=== PATIENT | female | born 1985 | race Caucasian/White ===

== ENCOUNTER 2017-06-21 18:21 | Observation (INO) ==
--- NOTE | 2017-06-21 19:15 | Emergency Department Note ---
Disposition Clinical Impression: Chest pain Qualifiers: Chest pain type: unspecified Qualified Code(s): R07.9 - Chest pain, unspecified Disposition: Admitted As Inpatient Condition: Fair Referrals: Sonam Justice CNP [Primary Care Provider] - Forms: ED Satisfaction Letter Time of Disposition: 21:03 Chest Pain HPI - General Chief Complaint: ED Chest Pain Stated Complaint: CP Time Seen by Provider: 06/21/17 18:24 Source: patient Limitations: no limitations Vital Signs Reviewed: Yes Nursing Notes Reviewed: Yes - History of Present Illness HPI Narrative: Presents with chest pain which is sharp and was present minimally for about 15 minutes this morning and then began while at rest at 3:00 this afternoon and the pain is sharp and constant with radiation to left shoulder and is worse with exertion and does have associated diaphoresis and dyspnea. No pleuritic aspect. Does not radiate straight through the back. No pain or swelling of the lower extremities. I did review the previous record and the patient does have multiple visits for chest pain including most recently 01/17/2016 with negative troponin was sent home for further outpatient management. 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 Social history: Smoker. Family history: Does have a father with congestive heart failure and atrial fibrillation but states does not have coronary disease. Severity scale (1-10): 6 - Related Data Home Medications Medication Instructions Recorded Confirmed Aspirin Enteric Coated [Aspirin EC] 81 mg PO DAILY 06/21/17 06/21/17 Metoprolol XL (24 HR) Succ [Toprol 25 mg PO DAILY 06/21/17 06/21/17 XL] Allergies Allergy/AdvReac Type Severity Reaction Status Date / Time No Known Allergies Allergy Verified 08/21/15 14:19 Review of Systems: Constitutional: No fever Vision: No blurred vision ENT: No rhinorrhea Respiratory: No cough Allergic: No allergies : No blood in urine GI: No blood in stool Hematologic: No bruising Dermatologic: No skin rash Musculoskeletal: No pain in the extremities Neuro: No numbness of the extremities Chest Pain PMH - Past Medical History Medical history: Reports: asthma Surgical history: Reports: , cholecystectomy Psychiatric history: Reports: anxiety, depression 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 , bilateral tubal ligation - Social History Smoking Status: Current every day smoker Alcohol use: Reports: none Drug use: Reports: none Physical Exam CONSTITUTIONAL: Well-appearing; well-nourished; A&O X 3, in no apparent distress HEAD: Normocephalic; atraumatic EYES: PERRL, no scleral icterus NOSE: The nose is normal in appearance without rhinorrhea NECK: No JVD or distended neck veins RESP: Normal chest excursion with respiration; breath sounds clear and equal bilaterally; no wheezes, rhonchi, or rales CARD: Regular rhythm, without murmurs, rub or gallop ABD: Non-distended; non-tender, soft, without rigidity, rebound or guarding,no pulsatile mass CHEST: Does have pain with palpation which does result in some facial wincing when the anterior chest wall is palpated. Normal appearance without erythema SKIN: Normal for age and race; warm and dry without diaphoresis ; no apparent lesions EXTREMITIES: Pulses are 2 plus and equal times 4 extremities, no peripheral edema or calf muscle pain - General Limitations: no limitations General appearance: alert Course Vital Signs Temperature 98.6 F 06/21/17 18:33 Pulse Rate 90 06/21/17 18:33 Respiratory Rate 22 06/21/17 18:33 Blood Pressure 143/91 06/21/17 18:33 O2 Sat by Pulse Oximetry 99 06/21/17 18:33 Temperature 98.6 F 06/21/17 18:33 Pulse Rate 79 06/21/17 20:39 Respiratory Rate 22 06/21/17 20:39 Blood Pressure 128/61 06/21/17 20:39 O2 Sat by Pulse Oximetry 100 06/21/17 20:39 Oxygen Delivery Oxygen Delivery Room Air Chest Pain - MDM Narrative Medical decision making narrative: The patient does have chest pain which is had multiple times in the past and she does have reproducible pain with palpation of the anterior chest wall and I did compare her EKG to previous EKG from January 2016 which does show some minimal anterior ST depression which is new compared to 2016. I did review her echocardiogram which does show a minimally decreased ejection fraction. She does have exertional pain as well as well as associated diaphoresis, dyspnea, radiation to left shoulder and EKG change and for that reason patient will be admitted for further evaluation 1917 I did review the patient's test results and the concern is that she does have new ischemic anterior ST changes with her history of cardiomyopathy I did speak with the hospitalist accepts the patient for admission. Initial troponin is negative. The patient will be admitted for further cardiac monitoring and cardiac troponin testing. 2021 - Medical Records Medical records reviewed: Yes I reviewed the patient's medical records. - Lab Data Lab results reviewed: Yes I reviewed the patient's lab results. Result diagrams: 06/21/17 18:38 06/21/17 18:38 Lab Results 06/21/17 06/21/17 Range/Units 18:38 18:38 WBC 12.8 H (4.3-11.1) K/mcL RBC 5.16 H (3.82-4.97) M/mcL Hgb 13.4 (11.5-15.4) g/dL Hct 41.7 (35.3-44.9) % MCV 80.8 L (83.0-100.0) fL MCH 26.0 L (28.0-33.3) pg MCHC 32.1 (31.6-35.5) g/dL RDW 15.0 H (11.5-14.5) % Plt Count 300 (140-400) K/mcL MPV 10.8 (9.4-12.4) fL Immature Gran % 0.4 (0-4) % Seg Neutrophils % 71.2 % Lymphocytes % 20.9 % Monocytes % 5.4 % Eosinophils % 1.9 % Basophils % 0.2 % Neutrophils # 9.1 H (1.6-8.9) K/mcL Lymphocytes # 2.7 (0.6-4.6) K/mcL Monocytes # 0.7 (0.0-1.3) K/mcL Eosinophils # 0.2 (0.0-0.6) K/mcL Basophils # 0.0 (0.0-0.2) K/mcL Sodium 136 (136-145) mEq/L Potassium 4.2 (3.5-5.1) mEq/L Chloride 109 H (98-107) mEq/L Carbon Dioxide 20 L (23-29) mEq/L BUN 12 (6-20) mg/dL Creatinine 0.60 (0.60-1.20) mg/dL Est GFR ( Amer) > 60 (> 60) Est GFR (Non-Af Amer) > 60 (> 60) BUN/Creatinine Ratio 20 (6-26) Glucose 86 (70-105) mg/dL Calculated Osmolality 281 (280-300) Calcium 9.3 (8.6-10.3) mg/dL Troponin I < 0.03 (< 0.04) ng/mL - Radiology Data Radiology results reviewed: Yes I reviewed the patient's radiology results. Heart Score - Score History: Moderately Suspicious EKG: Significant ST-Depression Age: Less than 45 Risk Factors: 1-2 risk factors Troponin: Less than normal limit HEART Score Total: 4
[2017-06-21] MEDS ORDERED: Aspirin 325 MG TABLET PO ONE (19:19)
[2017-06-21 20:04] LABS: Basophils % 0.2 %; Eosinophils # 0.2 K/mcL (0.0-0.6); Eosinophils % 1.9 %; Hematocrit 41.7 % (35.3-44.9); Hemoglobin 13.4 g/dL (11.5-15.4); Immature Granulocytes % 0.4 % (0-4); Lymphocytes # 2.7 K/mcL (0.6-4.6); Lymphocytes % 20.9 %; Mean Corpuscular HGB Conc 32.1 g/dL (31.6-35.5); Mean Corpuscular Volume 80.8 fL (83.0-100.0); Mean Platelet Volume 10.8 fL (9.4-12.4); Monocytes # 0.7 K/mcL (0.0-1.3); Monocytes % 5.4 %; Neutrophils # 9.1 K/mcL (1.6-8.9); Platelet Count 300 K/mcL (140-400); Red Blood Count 5.16 M/mcL (3.82-4.97); Segmented Neutrophils % 71.2 %
[2017-06-21 20:09] LABS: Troponin I < 0.03 ng/mL (< 0.04)
[2017-06-21 20:12] LABS: BUN/Creatinine Ratio 20 (6-26); Blood Urea Nitrogen 12 mg/dL (6-20); Calcium 9.3 mg/dL (8.6-10.3); Carbon Dioxide 20 mEq/L (23-29); Chloride 109 mEq/L (98-107); Glucose 86 mg/dL (70-105); Osmolality,Calculated 281 (280-300); Potassium 4.2 mEq/L (3.5-5.1); Sodium 136 mEq/L (136-145); eGFR For African Americans > 60 (> 60); eGFR For Non-African Americans > 60 (> 60)
--- NOTE | 2017-06-21 21:40 | Internal Med History&Physical ---
<Tone Ch Damian - Last Filed: 06/22/17 00:55> Date of Encounter: 06/22/17 Time of Encounter: 21:31 Assessment and Plan (1) Atypical chest pain Current visit: Yes Status: Acute Chest pain beginning at rest, with concerning symptoms of cardiac cause Received ASA in ED - add Nitro SL for chest pain ECG shows some minimal anterior ST depression which is new from prior evaluation in 2016 - Repeat ECG in AM Initial troponin negative - will continue to trend every 6 hours to evaluate for ACS Chest x-ray shows no acute process Follows with [facility] in [place] - previous EF 45-50% in May 2017 - Repeat Echo in AM due to change in symptoms and ECG - Lungs clear and no LE edema Consult Cardiology for further recommendations Continue home metoprolol and ASA (2) ST segment depression Current visit: Yes Status: Acute (3) History of cardiomyopathy Current visit: Yes Status: Acute (4) Tobacco use Current visit: Yes Status: Acute Internal Medicine - H&P: HPI Chief complaint: Chest Pain Admitted From: Emergency Dept History of present illness: Ms. Vance is a 31 year old female with past medical history asthma and cardiomyopathy, presented to the emergency department after having chest pain that began this afternoon around 3 PM. She states the pain is centrally located and constant with radiation to left shoulder/side, with intermittent periods when it becomes sharp. Symptoms began at rest after work, and continued on her drive home. Associated symptoms include diaphoresis, dyspnea, palpitations, and nausea. She states that her pain and dyspnea gets worse with walking. Admits to some mild lower extremity edema over the past couple months and orthopnea. She states while she was having the pain on her travel she felt like everything was going in slow motion. She denies syncope, fevers, cough, pleuritic pain, vomiting, heartburn, and abdominal pain. She states that she has had been having chest pain intermittently for the past year, but at this time she felt worse while having the pain. She follows with [facility] in [place] and they did an echocardiogram in May that showed an EF of 45-50% . She denies any personal prior cardiac history, but was previously taking lisinopril for hypertension, but it was stopped as her pressures normalized. She does admit to tobacco use. She does have a family history of cardiac disease with a father who has CHF and A. fib. Past Med Surg Social Fam HX - Past Medical History Medical history: asthma, cardiomyopathy Psychiatric history: anxiety, depression - Past Surgical History Surgical History: , cholecystectomy, other (Bilateral tubal ligation) - Social History Smoking Status: Current every day smoker Smokeless Tobacco Status: No Alcohol use: none Drug use: none - Family History Father Hx Family Cardiac Disorders: Yes (HTN, CHF, afib) Internal Medicine - H&P: Meds Aspirin Enteric Coated [Aspirin EC] 81 mg PO DAILY 06/21/17 [History] Metoprolol XL (24 HR) Succ [Toprol XL] 25 mg PO DAILY 06/21/17 [History] 3 Allergy/AdvReac Type Severity Reaction Status Date / Time No Known Allergies Allergy Verified 08/21/15 14:19 All Systems PM: A 10-system review of systems was performed and is negative for pertinent findings except as documented above in the HPI. - Constitutional Vitals: Temp Pulse Resp BP Pulse Ox 98.6 F 79 22 128/61 100 06/21/17 18:33 06/21/17 20:39 06/21/17 20:39 06/21/17 20:39 06/21/17 20:39 General appearance: Present: cooperative, A&O X 3, no acute distress, answers questions appropriately - Head Head exam: Present: atraumatic, normal inspection, normocephalic - Eye Eye exam: Present: EOMI, PERRL, sclera anicteric - ENT ENT exam: Present: mucous membranes moist, normal oropharynx - Neck Neck exam general surgery: Present: full ROM, normal inspection. Absent: lymphadenopathy - Respiratory Respiratory exam: Present: chest wall tenderness (anterior lower left ribs), CTAB. Absent: rales, respiratory distress, rhonchi, wheezes - Cardiovascular Cardiovascular exam: Present: RRR, +S1, +S2 - GI/Abdominal GI/Abdominal exam: Present: normal bowel sounds, soft. Absent: tenderness - Extremities Exam Extremities exam: Present: full ROM, normal capillary refill, normal inspection , warm, radial pulses palpable and symmetrical. Absent: calf tenderness, pedal edema, tenderness - Neurological Exam Neurological exam: Present: alert, oriented X3, no focal deficits - Skin Skin exam: Present: dry, intact, warm Internal Med - H&P Results - Labs CBC & Chem 7: 06/21/17 18:38 06/21/17 18:38 Labs: Short CBC 06/21/17 Range/Units 18:38 WBC 12.8 H (4.3-11.1) K/mcL Hgb 13.4 (11.5-15.4) g/dL Hct 41.7 (35.3-44.9) % Plt Count 300 (140-400) K/mcL Neutrophils # 9.1 H (1.6-8.9) K/mcL BMP 06/21/17 18:38 Sodium 136 Potassium 4.2 Chloride 109 H Carbon Dioxide 20 L BUN 12 Creatinine 0.60 Glucose 86 Calcium 9.3 Cardiac Enzymes 06/21/17 Range/Units 18:38 Troponin I < 0.03 (< 0.04) ng/mL - Impressions ITS Impressions Chest X-Ray 06/21/17 18:28 IMPRESSION: No acute process. D/ / Charles Fiore MD / Charles Fiore MD Interpreting Provider: Charles Fiore MD - VTE Reasons for not Prescribing Prophylaxis: Treatment not Indicated - Low risk for VTE <Ashlee Torrez - Last Filed: 06/22/17 05:21> Date of Encounter: 06/22/17 Internal Medicine - H&P: HPI History of present illness: Ms. Vance is a 31 year old female All Systems PM: A 10-system review of systems was performed and is negative for pertinent findings except as documented above in the HPI. - Constitutional Vitals: Temp Pulse Resp BP Pulse Ox 98.1 F 69 18 102/65 99 06/22/17 02:56 06/22/17 02:56 06/22/17 02:56 06/22/17 02:56 06/22/17 02:56 Internal Med - H&P Results - Labs CBC & Chem 7: 06/22/17 00:29 06/22/17 00:29 Labs: Short CBC 06/22/17 Range/Units 00:29 WBC 11.1 (4.3-11.1) K/mcL Hgb 11.9 D (11.5-15.4) g/dL Hct 37.6 (35.3-44.9) % Plt Count 270 (140-400) K/mcL Neutrophils # 7.1 (1.6-8.9) K/mcL BMP 06/22/17 00:29 Sodium 138 Potassium 3.5 Chloride 109 H Carbon Dioxide 22 L BUN 12 Creatinine 0.70 Glucose 113 H Calcium 8.9 Cardiac Enzymes 06/22/17 Range/Units 00:29 Troponin I < 0.03 (< 0.04) ng/mL Liver Function 06/22/17 Range/Units 00:29 Total Bilirubin 0.4 (0.3-1.0) mg/dL AST 11 L (13-39) Units/L ALT 10 (7-52) Units/L Alkaline Phosphatase 63 (34-104) Units/L Albumin 3.8 (3.5-5.7) g/dL - Attending Attestation I have seen and examined this patient independently. I have discussed with resident physician Dr. Ch regarding the management plan. Agree with the documentation.
[2017-06-21] MEDS ORDERED: Naloxone 0.4 MG/ML INJ IVP PRN (23:02)
[2017-06-21] MEDS ORDERED: Ondansetron ODT 4 MG TAB.RAPDIS SL PRN (23:04)
[2017-06-22 01:00] LABS: Basophils % 0.4 %; Eosinophils # 0.3 K/mcL (0.0-0.6); Eosinophils % 3.1 %; Hematocrit 37.6 % (35.3-44.9); Hemoglobin 11.9 g/dL (11.5-15.4); Immature Granulocytes % 0.5 % (0-4); Lymphocytes % 26.7 %; Mean Corpuscular HGB Conc 31.6 g/dL (31.6-35.5); Mean Corpuscular Hemoglobin 25.6 pg (28.0-33.3); Mean Platelet Volume 10.7 fL (9.4-12.4); Monocytes # 0.6 K/mcL (0.0-1.3); Monocytes % 5.8 %; Neutrophils # 7.1 K/mcL (1.6-8.9); Platelet Count 270 K/mcL (140-400); Red Blood Count 4.64 M/mcL (3.82-4.97); Segmented Neutrophils % 63.5 %
[2017-06-22 01:03] LABS: Alanine Aminotransferase 10 Units/L (7-52); Albumin 3.8 g/dL (3.5-5.7); Albumin/Globulin Ratio 1.7 (1.1-2.2); Alkaline Phosphatase 63 Units/L (34-104); Aspartate Amino Transferase 11 Units/L (13-39); BUN/Creatinine Ratio 17 (6-26); Bilirubin,Total 0.4 mg/dL (0.3-1.0); Blood Urea Nitrogen 12 mg/dL (6-20); Calcium 8.9 mg/dL (8.6-10.3); Carbon Dioxide 22 mEq/L (23-29); Chloride 109 mEq/L (98-107); Globulin 2.3 g/dL (2.4-3.5); Glucose 113 mg/dL (70-105); Osmolality,Calculated 287 (280-300); Potassium 3.5 mEq/L (3.5-5.1); Sodium 138 mEq/L (136-145); Total Protein 6.1 g/dL (6.4-8.9); eGFR For African Americans > 60 (> 60); eGFR For Non-African Americans > 60 (> 60)
[2017-06-22 01:05] LABS: INR 1.1
[2017-06-22] MEDS ORDERED: Aspirin 81 MG TAB.CHEW PO SCH (09:00)
[2017-06-22] MEDS ORDERED: Metoprolol XL (24 HR) Succ 25 MG TAB.ER.24H PO SCH (09:00)
[2017-06-22] MEDS: Nitroglycerin 0.4 MG TAB.SUBL SL PRN ×2 (09:28→19:37)
[2017-06-22] MEDS: Aspirin Enteric Coated 81 MG Tablet PO SCH (13:47)
[2017-06-22] MEDS ORDERED: Ibuprofen 600 MG TABLET PO PRN (14:16)
--- NOTE | 2017-06-22 16:33 | Discharge Summary ---
- NOTES TO OUTPATIENT PROVIDER Notes to Outpatient Provider: Recommend that pt follow up with cardiology and PCP after discharge. Orders not resulted at time of discharge: Pending orders 06/22/17 15:00 NM be perf SPECT multi [NM] Routine SP pharm nuclear stress Routine Date of Encounter: 06/22/17 Time of Encounter: 09:20 - Discharge Diagnosis (1) Atypical chest pain Priority: Primary Status: Acute Comments: Pt with history of chest pain for approximately 2 years. Pain is intermittent, substernal, with radiation to left chest and shoulder. Intermittent sharp pains , normally dull. Patient has associated symptoms of diaphoresis, dyspnea, palpitations and nausea. She states that pain and dyspnea gets worse with walking, better with rest. 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 She states chest pain may be due to anxiety. We obtained records from [facility] that showed a normal echocardiogram with ejection fraction 40-45% and no valvular dysfunction in May,. Patient had a nonnuclear exercise stress test was inconclusive at the same time as the echo. Patient does follow with cardiology at [facility]. I discussed options with patient, at this time echocardiogram results from today are not available. Patient and I discussed staying for nuclear stress test, she was waiting on echo results to make her decision. Stress test is ordered for morning. Continue telemetry Nitroglycerin for chest pain Nothing by mouth after midnight (2) DVT prophylaxis Priority: Secondary Status: Acute Comments: Lovenox subcutaneous, up to chair 3 times daily. (3) History of cardiomyopathy Priority: Secondary Status: Chronic Comments: Per patient history. Cardiomediastinal silhouette is without acute process on chest x-ray here. (4) ST segment depression Priority: Secondary Status: Acute Comments: On EKG in the emergency department. We will repeat EKG in the morning Troponins are negative. Continue telemetry (5) Tobacco use Priority: Secondary Status: Chronic Comments: Patient reports smoking approximately 1 pack per day. States that she is ready to quit smoking. Wellbutrin XL started. Hospital course: Ms. Vance is a 31 year old female with PMH of anxiety/depression, cardiomyopathy per pt history, and intermittent chest pain x 2 years. Pt was admitted for evaluation of atypical chest pain. She had echo and stress at outside facilty. Echo with EF of 40-45% and no valvular dysfunction, exercise stress test indeterminate. Pt had chest pain while driving home from work the night of admission. She agrees that this could be anxiety due to work, she also states that she would like to stop smoking, so Wellbutrin has been started. Echo completed here 06/22, but results not available at this time. Discharge started due to pt stating that she wants to go home, will stay for stress test in the a.m. Pt had stated that she was going to decide whether or not to go home after results were available, stress test ordered for the morning if she decided to stay. Chest xray negative, EKG with ST depression, troponins negative. Pt still reports intermittent chest pain today, agreeable to stress test. 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 Discharge discussed with: patient, family Time spent discussing smoking cessation with patient: 3 to 10 minutes - Time Spent with Patient Total time spent providing and/or coordinating discharge services: Less than 30 minutes - Discharge Medications Prescriptions: BuPROPion XL (24 HR) [Wellbutrin Xl] 150 mg PO DAILY #30 tab.er.24h Home Medications: Aspirin Enteric Coated [Aspirin EC] 81 mg PO DAILY 06/21/17 [History] Metoprolol XL (24 HR) Succ [Toprol Xl] 25 mg PO DAILY 06/21/17 [History] BuPROPion XL (24 HR) [Wellbutrin Xl] 150 mg PO DAILY #30 tab.er.24h 06/22/17 [Rx ] Allergies/Adverse Reactions: 3 Allergy/AdvReac Type Severity Reaction Status Date / Time No Known Allergies Allergy Verified 08/21/15 14:19 Date of admission: 06/21/17 21:47 Primary care physician: Sonam Justice, FORWARDER OPERATOR Discharging clinician: Jennifer Sen Anticipated date of discharge: 06/22/17 - Constitutional Vitals: Temp Pulse Resp BP Pulse Ox 98.4 F 60 16 119/71 98 06/22/17 07:35 06/22/17 07:35 06/22/17 07:35 06/22/17 07:35 06/22/17 07:35 General appearance: Present: cooperative, A&O X 3, pleasant, no acute distress, answers questions appropriately - Head Head exam: Present: atraumatic, normal inspection, normocephalic - Eye Eye exam: Present: conjuntiva pink, sclera anicteric - Neck Neck exam general surgery: Present: supple, trachea midline. Absent: lymphadenopathy - Respiratory Respiratory exam: Present: CTAB. Absent: accessory muscle use, chest wall tenderness, rales, rhonchi, wheezes - Cardiovascular Cardiovascular exam: Present: RRR, +S1, +S2. Absent: diastolic murmur, gallop, rubs, systolic murmur - GI/Abdominal GI/Abdominal exam: Present: normal bowel sounds, soft, no peritoneal signs. Absent: distended, hepatomegaly, tenderness - Extremities Exam Extremities exam: Present: normal capillary refill, normal inspection, warm, radial pulses palpable and symmetrical. Absent: calf tenderness, cyanotic, pedal edema, tenderness - Neurological Exam Neurological exam: Present: alert, oriented X3, no focal deficits. Absent: facial droop, speech deficit - Skin Skin exam: Present: dry, intact, normal color, warm. Absent: rash - Patient Status Disposition: Home, Self-Care Condition: Good - Discharge Instructions Follow Up With: Sonam Justice CNP [Primary Care Provider] - Additional Instructions: Please resume her normal home medications. 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 Return to your normal activities as tolerated. Please try to stop smoking. Wellbutrin has been called to your pharmacy. Return to the emergency department as needed for any other problems or concerns , or if your symptoms return or worsen. - Diet and Activity Activity: increase activity as tolerated Diet: advance to your usual diet - VTE Reasons for not Prescribing Prophylaxis: Treatment not Indicated - Low risk for VTE
[2017-06-22] MEDS ORDERED: Acetaminophen/Butalbital/CaffeineTABLET PO ONE (17:05)
[2017-06-22] MEDS: BuPROPion XL (24 HR) 150 MG TABLET PO SCH (17:38)
[2017-06-23 03:29] VITALS: BP 99/62
[2017-06-23] MEDS ORDERED: Regadenoson 0.4 MG/5 ML SYRINGE IVP ONE (05:59)
[2017-06-23 06:47] LABS: Basophils % 0.5 %; Eosinophils # 0.3 K/mcL (0.0-0.6); Hematocrit 38.5 % (35.3-44.9); Hemoglobin 12.6 g/dL (11.5-15.4); Immature Granulocytes % 0.5 % (0-4); Lymphocytes # 2.2 K/mcL (0.6-4.6); Lymphocytes % 26.5 %; Mean Corpuscular HGB Conc 32.7 g/dL (31.6-35.5); Mean Corpuscular Hemoglobin 26.4 pg (28.0-33.3); Mean Corpuscular Volume 80.7 fL (83.0-100.0); Mean Platelet Volume 10.8 fL (9.4-12.4); Monocytes # 0.6 K/mcL (0.0-1.3); Monocytes % 6.6 %; Neutrophils # 5.2 K/mcL (1.6-8.9); Platelet Count 271 K/mcL (140-400); Red Blood Count 4.77 M/mcL (3.82-4.97); Red Cell Distribution Width 15.2 % (11.5-14.5); Segmented Neutrophils % 61.9 %
[2017-06-23 06:54] LABS: BUN/Creatinine Ratio 21 (6-26); Blood Urea Nitrogen 15 mg/dL (6-20); Calcium 8.9 mg/dL (8.6-10.3); Carbon Dioxide 23 mEq/L (23-29); Chloride 110 mEq/L (98-107); Glucose 96 mg/dL (70-105); Osmolality,Calculated 285 (280-300); Sodium 137 mEq/L (136-145); eGFR For African Americans > 60 (> 60); eGFR For Non-African Americans > 60 (> 60)
[2017-06-23] MEDS ORDERED: *HR* Enoxaparin 40 MG/0.4 ML SYRINGE SQ SCH (07:00)
[2017-06-23] MEDS: Aspirin Enteric Coated 81 MG Tablet PO SCH (08:21)
[2017-06-23] MEDS: BuPROPion XL (24 HR) 150 MG TABLET PO SCH (08:21)
[2017-06-23] MEDS ORDERED: Metoprolol XL (24 HR) Succ 25 MG TAB.ER.24H PO SCH (09:00)
--- NOTE | 2017-06-23 13:38 | Discharge Summary ---
Orders not resulted at time of discharge: Pending orders 06/22/17 15:00 NM be perf SPECT multi [NM] Routine Date of Encounter: 06/23/17 Time of Encounter: 08:20 - Discharge Diagnosis (1) Atypical chest pain Status: Acute (2) DVT prophylaxis Status: Acute (3) History of cardiomyopathy Status: Chronic (4) ST segment depression Status: Acute (5) Tobacco use Status: Chronic Hospital course: Ms. Vance is a 31 year old female - Time Spent with Patient Total time spent providing and/or coordinating discharge services: - Discharge Medications Prescriptions: BuPROPion XL (24 HR) [Wellbutrin Xl] 150 mg PO DAILY #30 tab.er.24h Home Medications: Aspirin Enteric Coated [Aspirin EC] 81 mg PO DAILY 06/21/17 [History] Metoprolol XL (24 HR) Succ [Toprol Xl] 25 mg PO DAILY 06/21/17 [History] BuPROPion XL (24 HR) [Wellbutrin Xl] 150 mg PO DAILY #30 tab.er.24h 06/22/17 [Rx ] Allergies/Adverse Reactions: 3 Allergy/AdvReac Type Severity Reaction Status Date / Time No Known Allergies Allergy Verified 08/21/15 14:19 Date of admission: 06/21/17 21:47 Primary care physician: Sonam Justice CNP - Constitutional Vitals: Temp Pulse Resp BP Pulse Ox 98.2 F 67 18 99/62 96 06/23/17 03:27 06/23/17 03:27 06/23/17 03:27 06/23/17 03:27 06/23/17 03:27 General appearance: Present: cooperative, A&O X 3, pleasant, no acute distress, answers questions appropriately - Patient Status Disposition: Home, Self-Care Condition: Good - Discharge Instructions Follow Up With: Sonam Justice CNP [Primary Care Provider] - Additional Instructions: Please resume her normal home medications. 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 Return to your normal activities as tolerated. Please try to stop smoking. Wellbutrin has been called to your pharmacy. Return to the emergency department as needed for any other problems or concerns , or if your symptoms return or worsen. - VTE Reasons for not Prescribing Prophylaxis: Treatment not Indicated - Low risk for VTE
--- NOTE | 2017-06-23 14:10 | Internal Med Progress Note ---
Date of Encounter: 06/23/17 Time of Encounter: 08:20 - Assessment and plan (1) Atypical chest pain Current Visit: Yes Status: Acute Assessment and plan: Pt reports continued, intermittent, dull chest pain without n/v/diaphoresis, sob , or radiation. Echo with preserved function, no diastolic dysfunction, and no significant valvular dysfunction. Stress test negative with a gated EF of > 70%. Chest pain most likely related to stress. Pt reports increased stress at job over the last few months. Pain is not reproducible. Pt will start on Wellbutrin for smoking cessation/depression and will have a few Vistaril for anxiety. Follow up with PCP. (2) DVT prophylaxis Current Visit: Yes Status: Acute Assessment and plan: Lovenox. Patient was also ambulatory. (3) History of cardiomyopathy Current Visit: Yes Status: Chronic Assessment and plan: Per patient's own history. Cardio mediastinal silhouette was without acute process on chest x-ray on admission. Echo and stress were both within normal limits. (4) ST segment depression Current Visit: Yes Status: Acute Assessment and plan: Acute. Troponins were negative, continue telemetry. (5) Tobacco use Current Visit: Yes Status: Chronic Assessment and plan: Patient smokes 1 pack per day. Wellbutrin XL 75 mg by mouth daily started. (6) Anxiety Current Visit: Yes Status: Chronic Assessment and plan: Patient reports chronic anxiety. She attributes chest pain to recent increased anxiety at her job. She cares for a family friend who is her palsy, states the patient has become extremely needy recently, more demanding than normal. She states that this and lack of sleep are causing her to have extra anxiety, possibly inducing chest pain. Patient will be given 10 Vistaril, and prescription for Wellbutrin XL for smoking cessation, and anxiety. - Time Spent With Patient less than 15 minutes - Subjective Interval history: Pt was seen and assessed at bedside at 0820, /SO at bs. Pt reports some mild substernal chest pain, denies SOB, N/V, diaphoresis. She states again today that she feels that her chest pain is related to anxiety and that she has had this for years. Reports that she would like to have an appointment with [facility] since she has no PCP. - Constitutional Vitals: Temp Pulse Resp BP Pulse Ox 98.2 F 67 18 99/62 96 06/23/17 03:27 03/17/18 03:27 06/23/17 03:27 06/23/17 03:27 06/23/17 03:27 General appearance: Present: cooperative, A&O X 3, pleasant, no acute distress, obese, answers questions appropriately - Head Head exam: Present: atraumatic, normal inspection, normocephalic - Eye Eye exam: Present: normal appearance, conjuntiva pink, sclera anicteric - Neck Neck exam general surgery: Present: supple, trachea midline. Absent: lymphadenopathy - Respiratory Respiratory exam: Present: chest wall tenderness, CTAB. Absent: accessory muscle use, rales, respiratory distress, rhonchi, wheezes - Cardiovascular Cardiovascular exam: Present: RRR, +S1, +S2. Absent: bradycardia, diastolic murmur, gallop, rubs, systolic murmur - GI/Abdominal GI/Abdominal exam: Present: normal bowel sounds, soft, no peritoneal signs. Absent: distended, hepatomegaly, tenderness - Extremities Exam Extremities exam: Present: normal capillary refill, normal inspection, warm, radial pulses palpable and symmetrical. Absent: calf tenderness, cyanotic, pedal edema, tenderness - Neurological Exam Neurological exam: Present: alert, oriented X3, no focal deficits. Absent: facial droop, speech deficit - Skin Skin exam: Present: dry, intact, normal color, warm. Absent: rash Internal Medicine: Result - Labs CBC & Chem 7: 06/23/17 06:10 06/23/17 06:10 Labs: Short CBC 06/23/17 Range/Units 06:10 WBC 8.4 (4.3-11.1) K/mcL Hgb 12.6 (11.5-15.4) g/dL Hct 38.5 (35.3-44.9) % Plt Count 271 (140-400) K/mcL Neutrophils # 5.2 (1.6-8.9) K/mcL BMP 06/23/17 06:10 Sodium 137 Potassium 4.0 Chloride 110 H Carbon Dioxide 23 BUN 15 Creatinine 0.72 Glucose 96 Calcium 8.9 - ABG Interpretation ABG results: PT/INR, D-dimer PT 12.0 Seconds (9.4-12.1) 06/22/17 00:29 - Impressions Impressions Echocardiogram 06/22/17 21:24 Impressions: LVEF 60-65%. Normal LV chamber size, wall thickness and function. Normal left ventricular diastolic function. Normal right ventricular structure and function. No evidence of pulmonary hypertension. No significant valvular dysfunction. Left Ventricular Wall Motion: Rest Echo Findings All wall segments showed normal motion. Findings: Study Quality * Technically adequate exam. ECG Findings * Normal sinus rhythm. Left Ventricle * LVEF 60-65%. * Normal LV chamber size, wall thickness and function. * Normal left ventricular diastolic function. Right Ventricle * Normal right ventricular structure and function. Left Atrium * Mildly dilated left atrium. Right Atrium * Mildly dilated right atrium. Interatrial Septum * Interatrial septum not well evaluated. Aortic Valve * Trileaflet aortic valve with normal function. * No aortic regurgitation. * No aortic stenosis. Mitral Valve * Normal mitral valve structure and function. * No mitral regurgitation. * No mitral stenosis. Tricuspid Valve * Normal tricuspid valve structure and function. * Trace tricuspid regurgitation. * No evidence of pulmonary hypertension. Pulmonic Valve * Normal pulmonic valve structure and function. * Trace pulmonic regurgitation. Aorta * Normally sized aortic root. Pericardium * The pericardium appears normal. IVC * Normal IVC dimensions and inspiratory collapse. Pulmonary Artery * Normal visualized portions of the main pulmonary artery. - VTE Reasons for not Prescribing Prophylaxis: Treatment not Indicated - Low risk for VTE Consult Discharge Plan - Plan Additional Instructions: Please resume her normal home medications. 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 Return to your normal activities as tolerated. Please try to stop smoking. Wellbutrin has been called to your pharmacy. Return to the emergency department as needed for any other problems or concerns , or if your symptoms return or worsen. Referrals: Sonam Justice CNP [Primary Care Provider] - Prescriptions: BuPROPion XL (24 HR) [Wellbutrin Xl] 150 mg PO DAILY #30 tab.er.24h
--- NOTE | 2017-06-26 21:22 | Electrocardiograph Report ---
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
--- NOTE | 2017-06-26 21:51 | Electrocardiograph Report ---
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
--- NOTE | 2017-06-26 22:17 | Electrocardiograph Report ---
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
== END 2017-06-23 16:20 | disposition home or self-care (01) ==
LOC: EMEROO 18:21 → 3BNU 18:21
PROVIDERS: ADMIT Registered Nurse; ATTEND Registered Nurse